=== PATIENT | female | born 1975 | race Two or more races ===

== ENCOUNTER 2017-01-21 20:36 | Emergency (ER) | payer MEDICAID ==
[~2017-01-21] VITALS: Ht 167.6 cm; Wt 68.9 kg
[2017-01-21 20:54] VITALS: BP 124/74
--- NOTE | 2017-01-21 20:54 | NUR ---
PT BIBSELF C/O LEFT BACK PAIN RADIATING TO LEFT ABD X 3 DAYS. PT DENIES TRAUMA. PT AOX3 RR EVEN AND UNLABORED. NO SOB NOTED. NAD NOTED. NO NVD AT THIS TIME. PT NOT DIAPHORETIC. PT GOWNED AND WAITING FOR MD BOSWELL.
== END 2017-01-21 21:19 | disposition home or self-care (01) ==
LOC: ER 20:38
DX: M54.6 Pain in thoracic spine (principal)
CPT/HCPCS: 99283; A4606; Z7610